=== PATIENT | female | born 1955 | race Caucasian/White ===

== ENCOUNTER → 2020-08-04 10:19 | Outpatient (CLI) | payer MEDICARE, OTHER, SELFPAY ==
--- NOTE | ~2020-08-04 | DEXA_ITS ---
Bone Density Report Name: Dianne Chacon Age: 65 Sex: Female Ethnicity: White Date of : 1955 Indication: postmenopausal; screening for osteoporosis; parental hip fracture; height loss; hysterectomy; Referring Provider: TITA GRAVES Study: Bone densitometry was performed. Exam Date: August 04, 2020 Accession number: [id number] Bone Density: Region BMD T-score Z-score Classification AP Spine (L1, L2, L3) 1.119 0.9 2.8 Normal Femoral Neck (Left) 0.731 -1.1 0.6 Osteopenia Total Hip (Left) 0.778 -1.3 0.0 Osteopenia Femoral Neck (Right) 0.731 -1.1 0.6 Osteopenia Total Hip (Right) 0.817 -1.0 0.3 Normal Total Hip Mean 0.798 -1.2 0.2 Osteopenia World Health Organization criteria for BMD impression classify patients as: Normal (T-score at or above -1.0), Osteopenia (T-score between -1.0 and -2.5), or Osteoporosis (T-score at or below -2.5). 10-year Fracture Risk(1): Major Osteoporotic Fracture 12% Hip Fracture 0.7% Reported Risk Factors: [place] (), Neck BMD=0.731, BMI=57.0, parental fracture (1) FRAX(R) Version 3.08. Fracture probability calculated for an untreated patient. Fracture probability may be lower if the patient has received treatment. Previous Exams: Region Exam Age BMD T-score BMD Change BMD Change Date g/cm2 vs Baseline vs Previous AP Spine(L1, L2, L3) 08/04/2020 65 1.119 0.9 0.176 0.098* 12/23/2015 60 1.022 0.0 0.079 0.050* 12/06/2013 58 0.972 -0.4 0.029 0.071 10/28/2011 56 0.901 -1.1 -0.042* 0.008 07/08/2009 53 0.893 -1.1 -0.050* -0.050* 03/22/2006 50 0.943 -0.7 Total Hip(Left) 08/04/2020 65 0.778 -1.3 -0.059 -0.088* 12/23/2015 60 0.865 -0.6 0.029 0.047* 12/06/2013 58 0.819 -1.0 -0.018 0.026 10/28/2011 56 0.792 -1.2 -0.044* 0.017 07/08/2009 53 0.775 -1.4 -0.061* -0.061* 03/22/2006 50 0.837 -0.9 Total Hip(Right) 08/04/2020 65 0.817 -1.0 -0.021 -0.039* 12/23/2015 60 0.856 -0.7 0.019 0.012 12/06/2013 58 0.844 -0.8 0.007 0.067 10/28/2011 56 0.778 -1.3 -0.060* -0.016 07/08/2009 53 0.794 -1.2 -0.043* -0.043* 03/22/2006 50 0.837 -0.9 *Denotes significance at 95% confidence level, LSC for AP Spine = 0.022 g/cm2, LSC for Total Hip = 0.027 g/cm2 Clinical Information Pr
--- NOTE | ~2020-08-04 | MM_ITS ---
EXAMINATION: MM screening [facility] BI w shannon HISTORY: Screening mammogram TECHNIQUE: Craniocaudal and mediolateral oblique 3-D tomosynthesis images were obtained and synthetic 2-D images were generated. CAD analysis was submitted and interpreted. COMPARISON: 03/21/2019, 01/31/2018, 01/05/2017 BREAST PARENCHYMAL COMPOSITION: The breasts are heterogeneously dense, which may obscure small masses . FINDINGS: RIGHT BREAST: There is no evidence of suspicious mass, calcification, or architectural distortion to suggest malignancy. There has been no significant interval change. LEFT BREAST: There is a possible mass in the middle third of the inner breast best appreciated 9 cm f rom the nipple on craniocaudal tomosynthesis image /. IMPRESSION: 1. Possible left breast mass. 2. Additional mammographic views and possible breast ultrasound are recommended. BI-RADS Category 0: Incomplete: Needs additional imaging evaluation. Reviewed, dictated and finalized at location A. K DRIVER TEAMSTER IMPRESSION: 1. Possible left breast mass. 2. Additional mammographic views and possible breast ultrasound are recommended . BI-RADS Category 0: Incomplete: Needs additional imaging evaluation.
== END ==
PROVIDERS: PCP Internal Medicine; Visit Provider Internal Medicine
DX: Z12.31 Encounter for screening mammogram for malignant neoplasm of breast (principal); Z78.0 Asymptomatic menopausal state; R92.8 Other abnormal and inconclusive findings on diagnostic imaging of breast; M85.89 Other specified disorders of bone density and structure, multiple sites
CPT/HCPCS: 77063; 77067; 77080

== ENCOUNTER 2020-09-16 13:26 | Emergency (ER) | payer MEDICARE, OTHER, SELFPAY ==
--- NOTE | 2020-09-16 13:27 | ED.WOUNDLAC ---
HPI - Wound/Laceration General Chief Complaint: Skin/Abscess/Foreign Body Stated Complaint: FINGER LACERATION Time Seen by Provider: 09/16/20 13:28 Source: patient and RN notes reviewed History of Present Illness HPI narrative: Patient is a 65-year-old female who presents the urgent care with complaints of a wound to the left index finger. Patient states that she was slicing sweet potatoes approximately 2 or 3 hours ago and cut the tip of her left index finger. Patient denies of any injury to the nailbed. Patient states that she has tried several times to get the bleeding to stop and it continues to saturate her gauze. No other acute complaints. Patient denies of taking any blood thinners. No acute distress noted. Patient aware of the plan of care. Some parts of this dictation were generated by voice recognition software and may contain typographical and/or grammatical inaccuracies. Related Data Allergies Allergy/AdvReac Type Severity Reaction Status Date / Time poison ash extract Allergy Unknown Rash Verified 09/16/20 13:44 thimerosal Allergy Unknown Rash Verified 09/16/20 13:44 Review of Systems Review of Systems: Narrative: CONSTITUTIONAL: Denies fever, chills, or sweats. EYES: Denies visual changes, redness, or discharge. ENT: Denies rhinorrhea, congestion, sore throat, or otalgia. CARDIOVASCULAR: Denies chest pain, palpitations, or edema. RESPIRATORY: Denies cough or dyspnea. GASTROINTESTINAL: Denies abdominal pain, nausea, vomiting, or diarrhea. GENITOURINARY: Denies dysuria or hematuria. SKIN: Reports of a laceration to the tip of the left index finger MUSCULOSKELETAL: Denies back pain, joint pain, or myalgia. NEUROLOGIC: Denies headache, numbness, or weakness. All other systems reviewed are negative, except as documented in HPI. [facility] Past Medical History Medical History (Updated 09/16/20 @ 13:55 by EUSEBIO [place]) Breast cancer screening Colon cancer screening Family History Family History Sibling Patient's brother is in good health Family history of type 2 diabetes mellitus Mother Family history of dementia, Onset Age: 90 Patient's mother is , Onset Age: 90 Father Family history of type 2 diabetes mellitus Social History Social History Smoking status: Never smoker Second hand tobacco smoke exposure: No Alcohol intake: current Drinks per week: 2 Substance use: never Substance use type: does not use Comments At the time of my signature, I reviewed and agree with the nursing past medical, surgical, social, and family history. There is no relevant family history pertinent to the patient complaint. Exam Narrative: Exam Narrative: GENERAL: This is a well-nourished, well-developed patient, in no apparent distress. HEAD: normocephalic, atraumatic. EYES: PERRL. Sclera clear/white. Vision is grossly intact. EARS: External ears normal NOSE: External nose normal with no obvious nasal discharge, nares without redness, no rhinorrhea. THROAT: Mucous membranes moist NECK: Neck supple SKIN: Approximately 1.5 cm skin avulsion to the tuft of the left index finger, ulnar aspect NEURO: awake, alert, and oriented to person, place and time. There were no obvious focal neurologic abnormalities. EXTREMITIES: No clubbing, cyanosis, or edema. Capillary refill less than 2 seconds to left upper extremity with positive strong left radial pulse. Course Vital Signs Vital signs: Vital Signs Temperature 98.6 F 09/16/20 13:35 Pulse Rate 81 09/16/20 13:35 Respiratory Rate 16 09/16/20 13:35 Blood Pressure 179/86 H 09/16/20 13:35 Pulse Oximetry 99 09/16/20 13:35 Temperature 98.6 F 09/16/20 13:35 Pulse Rate 81 09/16/20 13:35 Respiratory Rate 16 09/16/20 13:35 Blood Pressure 179/86 H 09/16/20 13:35 Pulse Oximetry 99 09/16/20 13:35 Reviewe
[2020-09-16 13:35] VITALS: BP 179/86; PULSE 81; RESP 16; TEMP 37; O2SAT 99
== END 2020-09-16 13:57 | disposition home or self-care (01) ==
PROVIDERS: Emergency Provider Nurse Practitioner Family; PCP Internal Medicine
DX: S61.201A Unspecified open wound of left index finger without damage to nail, initial encounter (principal); W45.8XXA Other foreign body or object entering through skin, initial encounter
CPT/HCPCS: 12001; 99212; G0463

== ENCOUNTER 2021-11-16 09:51 | Outpatient (CLI) | payer MEDICARE, OTHER, SELFPAY ==
--- NOTE | ~2021-11-16 | MM_ITS ---
EXAMINATION: MM screening [facility] BI w shannon HISTORY: Screening mammogram TECHNIQUE: Craniocaudal and mediolateral oblique 3-D tomosynthesis images were obtained and synthetic 2-D images were generated. CAD analysis was submitted and interpreted. COMPARISON: 08/04/2020, 03/21/2019, 01/31/2018 BREAST PARENCHYMAL COMPOSITION: The breasts are heterogeneously dense, which may obscure small masses . FINDINGS: There is no suspicious mass, calcification, or architectural distortion to suggest malignan cy in either breast. There has been no suspicious interval change. IMPRESSION: 1. No mammographic evidence of malignancy. 2. Recommend routine screening mammography in one year. BI-RADS Category 1: Negative Reviewed, dictated and finalized at location A.
== END 2021-11-16 09:52 | disposition home or self-care (01) ==
PROVIDERS: PCP Internal Medicine; Visit Provider Internal Medicine
DX: Z12.31 Encounter for screening mammogram for malignant neoplasm of breast (principal)
CPT/HCPCS: 77063; 77067

== ENCOUNTER 2022-08-02 09:41 | Outpatient (CLI) | payer MEDICARE, OTHER, SELFPAY ==
[2022-08-02 19:56] LABS: Alanine Aminotransferase 31 U/L (6-35); Albumin Level 4.8 g/dL (3.5-5.1); Alkaline Phosphatase 150 U/L (38-126); Anion Gap 7 mmol/L (8-16); Aspartate Amino Transferase 32 U/L (14-36); Bilirubin,Total 0.6 mg/dL (0.2-1.3); Blood Urea Nitrogen 26 mg/dL (7-17); Calcium 9.6 mg/dL (8.4-10.2); Carbon Dioxide 31 mmol/L (22-30); Chloride 100 mmol/L (98-107); Cholesterol 264 mg/dL (0-200); Estimated Glomerular Filt Rate 49; Glucose 108 mg/dL (65-110); HDL Direct 83 mg/dL; Potassium 4.9 mmol/L (3.4-5.0); Sodium 138 mmol/L (137-145); Triglycerides 134 mg/dL (<150)
[2022-08-02 20:08] LABS: LDL Cholesterol Direct 117 mg/dL
[2022-08-03 00:01] LABS: Total Triiodothyronine (T3) 1.17 NG/ML (0.97-1.69)
== END 2022-08-02 09:42 | disposition home or self-care (01) ==
LOC: ANHGOSHLAB 09:43
PROVIDERS: PCP Family Medicine; Visit Provider Family Medicine
DX: E78.2 Mixed hyperlipidemia (principal); Z13.220 Encounter for screening for lipoid disorders; I10 Essential (primary) hypertension; E03.9 Hypothyroidism, unspecified
CPT/HCPCS: 36415; 80053; 80061; 84439; 84443; 84480

== ENCOUNTER 2023-01-31 10:25 | Outpatient (CLI) | payer MEDICARE, OTHER, SELFPAY | END 2023-01-31 10:26 | disposition home or self-care (01) | LOC: ANHGOSHLAB 10:26 | PROVIDERS: PCP Family Medicine; Visit Provider Family Medicine | DX: Z13.29 Encounter for screening for other suspected endocrine disorder (principal); I10 Essential (primary) hypertension | CPT/HCPCS: 36415; 84443 ==

== ENCOUNTER 2023-08-01 10:30 | Outpatient (CLI) | payer MEDICARE, OTHER, SELFPAY ==
[2023-08-01 12:54] LABS: Basophils Absolute Auto 0.1 K/mm3 (0.0-0.1); Basophils Percent Auto 1.6 % (0.2-1.2); Eosinophils Absolute Auto 0.3 K/mm3 (0-0.3); Hematocrit 44.7 % (37.0-47.0); Hemoglobin 13.8 g/dL (12.0-15.0); Immature Granulocyte Absolute 0.02 K/mm3 (0.00-0.031); Immature Granulocyte Percent A 0.3 % (0-0.5); Lymphocytes Absolute Auto 2.48 K/mm3 (0.9-3.2); Lymphocytes Percent Auto 36.8 % (18.3-44.2); Mean Corpuscular HGB Conc 30.9 g/dl (32-36); Mean Corpuscular Hemoglobin 27.7 pg (26-34); Mean Corpuscular Volume 89.6 fl (80-100); Mean Platelet Volume 9.9 fl (7.4-10.4); Monocytes Absolute Auto 0.7 K/mm3 (0.1-0.6); Monocytes Percent Auto 9.7 % (2.6-8.5); Neutrophils Absolute Auto 3.2 K/mm3 (1.3-6.7); Neutrophils Percent Auto 47.6 % (45.5-73.1); Platelet Count Result 274 k/mm3 (150-375); Red Blood Count 4.99 M/mm3 (4.2-5.4); Red Cell Distribution Width 14.7 % (11.5-14.5); White Blood Count 6.7 K/mm3 (4.5-10.0)
[2023-08-01 13:18] LABS: Alanine Aminotransferase 27 U/L (6-35); Albumin Level 4.6 g/dL (3.5-5.1); Alkaline Phosphatase 135 U/L (38-126); Anion Gap 7 mmol/L (8-16); Aspartate Amino Transferase 36 U/L (14-36); Bilirubin,Total 0.7 mg/dL (0.2-1.3); Blood Urea Nitrogen 30 mg/dL (7-17); Calcium 9.9 mg/dL (8.4-10.2); Carbon Dioxide 28 mmol/L (22-30); Chloride 101 mmol/L (98-107); Cholesterol 247 mg/dL (0-200); Estimated Glomerular Filt Rate 49; Glucose 94 mg/dL (65-110); HDL Direct 84 mg/dL; Potassium 4.5 mmol/L (3.4-5.0); Sodium 136 mmol/L (137-145); Triglycerides 109 mg/dL (<150)
[2023-08-01 13:29] LABS: LDL Cholesterol Direct 115 mg/dL
[2023-08-01 15:46] LABS: Iron 98 ug/dL (37-170)
[2023-08-01 15:56] LABS: Percent Iron Saturation 33 % (20-50)
== END 2023-08-01 10:31 | disposition home or self-care (01) ==
PROVIDERS: PCP Family Medicine; Visit Provider Family Medicine
DX: R53.83 Other fatigue (principal); L60.3 Nail dystrophy; I12.9 Hypertensive chronic kidney disease with stage 1 through stage 4 chronic kidney disease, or unspecified chronic kidney disease; N18.31 Chronic kidney disease, stage 3a; Z13.220 Encounter for screening for lipoid disorders; Z13.29 Encounter for screening for other suspected endocrine disorder; Z13.228 Encounter for screening for other metabolic disorders
CPT/HCPCS: 36415; 80053; 80061; 82728; 83540; 83550; 84443; 85025

== ENCOUNTER 2024-02-06 08:51 | Outpatient (CLI) | payer MEDICARE, SELFPAY ==
[2024-02-06 13:09] LABS: Alanine Aminotransferase 23 U/L (6-35); Albumin Level 4.7 g/dL (3.5-5.1); Alkaline Phosphatase 128 U/L (38-126); Anion Gap 10 mmol/L (4-12); Aspartate Amino Transferase 37 U/L (14-36); Bilirubin,Total 0.5 mg/dL (0.2-1.3); Blood Urea Nitrogen 30 mg/dL (7-17); Calcium 9.5 mg/dL (8.4-10.2); Carbon Dioxide 27 mmol/L (22-30); Chloride 102 mmol/L (98-107); Estimated Glomerular Filt Rate 55; Glucose 96 mg/dL (65-110); Potassium 3.9 mmol/L (3.4-5.0); Sodium 139 mmol/L (137-145)
[2024-02-06 13:14] LABS: Appearance Urine Clear (Clear); Bacteria Urine None Seen /hpf; Bilirubin Urine Negative (Negative); Blood Urine Trace (Negative); Color Urine Yellow (Yellow); Glucose Urine UA Negative (Negative); Ketones Urine Negative (Negative); Leukocyte Esterase Ur Negative LEU/UL (Negative); Nitrate Urine Negative (Negative); Non Pathogenic Casts 0-2; Protein Urine Negative (Negative); Specific Grav Ur 1.012 (1.001-1.035); Squamous Epithelial Cell Urine None Seen /hpf (Few); Urobilinogen Urine 0.2 mg/dL (<2.0); WBC Urine 0-5 /hpf (0-3)
[2024-02-06 13:15] LABS: Parathyroid Intact 89.5 pg/mL (7.5-53.5)
[2024-02-06 13:17] LABS: Add Urine Microscopic? YES
[2024-02-06 14:06] LABS: Vitamin D 25 Hydroxy 20.2 ng/mL
[2024-02-06 14:45] LABS: Creatinine Urine 38.3 mg/dL
[2024-02-06 15:00] LABS: MALB Creatinine Ratio < 15.7 mg/g (0-30); Microalbumin Urine Random < 6.0 mg/L (0-16.7)
== END 2024-02-06 08:52 | disposition home or self-care (01) ==
PROVIDERS: PCP Family Medicine; Visit Provider Family Medicine
DX: E11.9 Type 2 diabetes mellitus without complications (principal); N18.31 Chronic kidney disease, stage 3a; E55.9 Vitamin D deficiency, unspecified; Z13.228 Encounter for screening for other metabolic disorders
CPT/HCPCS: 36415; 80053; 81001; 82043; 82306; 82330; 83036; 83970

== ENCOUNTER 2024-07-31 10:10 | Outpatient (CLI) | payer MEDICARE, SELFPAY ==
[2024-07-31 12:56] LABS: Basophils Absolute Auto 0.1 K/mm3 (0.0-0.1); Basophils Percent Auto 1.3 % (0.2-1.2); Eosinophils Absolute Auto 0.2 K/mm3 (0-0.3); Eosinophils Percent Auto 3.2 % (0-4.4); Hematocrit 45.5 % (37.0-47.0); Hemoglobin 14.6 g/dL (12.0-15.0); Immature Granulocyte Absolute 0.02 K/mm3 (0.00-0.031); Immature Granulocyte Percent A 0.3 % (0-0.5); Lymphocytes Absolute Auto 2.34 K/mm3 (0.9-3.2); Lymphocytes Percent Auto 34.2 % (18.3-44.2); Mean Corpuscular HGB Conc 32.1 g/dl (32-36); Mean Corpuscular Hemoglobin 28.6 pg (26-34); Mean Platelet Volume 10.2 fl (7.4-10.4); Monocytes Absolute Auto 0.5 K/mm3 (0.1-0.6); Monocytes Percent Auto 7.9 % (2.6-8.5); Neutrophils Absolute Auto 3.6 K/mm3 (1.3-6.7); Neutrophils Percent Auto 53.1 % (45.5-73.1); Platelet Count Result 291 k/mm3 (150-375); Red Blood Count 5.11 M/mm3 (4.2-5.4); Red Cell Distribution Width 14.8 % (11.5-14.5); White Blood Count 6.8 K/mm3 (4.5-10.0)
[2024-07-31 13:03] LABS: Alanine Aminotransferase 28 U/L (6-35); Albumin Level 4.8 g/dL (3.5-5.1); Alkaline Phosphatase 126 U/L (38-126); Anion Gap 4 mmol/L (4-12); Aspartate Amino Transferase 58 U/L (14-36); Bilirubin,Total 0.8 mg/dL (0.2-1.3); Blood Urea Nitrogen 28 mg/dL (7-17); Calcium 9.8 mg/dL (8.4-10.2); Carbon Dioxide 33 mmol/L (22-30); Chloride 101 mmol/L (98-107); Cholesterol 242 mg/dL (0-200); Estimated Glomerular Filt Rate > 60; Glucose 93 mg/dL (65-110); HDL Direct 88 mg/dL; Potassium 3.9 mmol/L (3.4-5.0); Sodium 138 mmol/L (137-145); Triglycerides 117 mg/dL (<150)
[2024-07-31 13:13] LABS: Free T4 Free Thyroxine 1.43 ng/dL (0.78-2.19); Vitamin D 25 Hydroxy 16.6 ng/mL
[2024-07-31 13:14] LABS: LDL Cholesterol Direct 105 mg/dL
[2024-07-31 13:16] LABS: Hemoglobin A1C 6.1 % (<5.7)
[2024-07-31 13:17] LABS: Parathyroid Intact 73.2 pg/mL (14.5-75.2)
== END 2024-07-31 10:11 | disposition home or self-care (01) ==
LOC: ANHGOSHLAB 10:12
PROVIDERS: PCP Family Medicine; Visit Provider Nurse Practitioner Family
DX: E78.5 Hyperlipidemia, unspecified (principal); E03.9 Hypothyroidism, unspecified; R73.03 Prediabetes; E55.9 Vitamin D deficiency, unspecified; I12.9 Hypertensive chronic kidney disease with stage 1 through stage 4 chronic kidney disease, or unspecified chronic kidney disease; N18.30 Chronic kidney disease, stage 3 unspecified
CPT/HCPCS: 36415; 80053; 80061; 82306; 83036; 83970; 84439; 84443; 85025

== ENCOUNTER 2025-07-09 09:41 | Outpatient (CLI) | payer MEDICARE, SELFPAY ==
--- OUTSIDE RECORDS SUMMARY | 2008-02-08 08:38 | XMS_ITS | Continuity of Care Document ---
Author Organization [facility] [place] [id number] [place] [address] Dr [address] [place] [phone] Phone Care Team Providers Care Primary Class Teacher Name Role Phone Bimalmekhi Luciusnan Unavailable Unavailable Procedures Procedure Date Special Reports Or Forms CL Replacement - Vistakon Disp W/BW Soft Tax - Medical Post-op Follow-up Visit No Charge Contact Lens Check Post-op Follow-up Visit Post-op Follow-up Visit Remove Cataract, Insert Lens Eye Exam Established Pt IOLMaster Office/outpatient Visit, Est Refraction Eye Exam Established Pt Ophthalmoscopy, Subsequent Office/outpatient Visit, Est Ophthalmoscopy, Subsequent Office/outpatient Visit, New Ophthalmoscopy, Subsequent Eye Exam Established Pt Ophthalmoscopy, Subsequent Eye Exam Established Pt Ophthalmoscopy, Subsequent Eye Exam Established Pt Ophthalmoscopy, Subsequent Eye Exam Established Pt Ophthalmoscopy, Subsequent Eye Exam Established Pt Ophthalmoscopy, Subsequent Eye Exam & Treatment Ophthalmoscopy, Subsequent Eye Exam Established Pt Office Consultation Ophthalmoscopy Ophthalmoscopy Advance Directives Directive Yes / No Effective Date File Name No Information Encounters Encounter Description Practice Location Reason(s) For Visit Diagnoses Date Provider Providers Copied on Encounter [facility], [address] [place] [address] [address], [place], [place], [id number], tel:[phone] [facility] No Information Serjio-2 0-200 8 Bing Christianson. [address] , [address], [place], [place], [facility], [place]. tel:[phone] [facility], [address] [place] [address] [address], [place], [place], [address], tel:[phone] [facility] No Information Apr-3 0-200 8 Thompson OD Connor. [address] [place] , [address], [place], [facility], [place]. tel:[phone] [facility], [address] [place] [address] [address], [place], [place], [address], tel:[phone] [facility] No Information Apr-2 1-200 8 Bing Christianson. [address] , [address], [place], [facility], [place]. tel:[phone] [facility], [address] [place] [address] [address], [place], [place], [address], [place] tel:[phone] [facility] No Information Apr-1 0-200 8 Thompson OD Connor. [address] , [address], [place], [facility], [place]. tel:[phone] [facility], [address] [place] [address] [address], [place], [place], [address], [place] tel:[phone] [facility] No Information Mar-2 7-200 8 Thompson OD Connor. [address] , [address], [place], [facility], [place]. tel:[phone] Referring Provider: Sammy Gusman, [employer] [employer] [address], [place], [address]. tel:[phone] [facility], [address], [place], [place], [address], [place] tel:[phone] [facility] No Information 2-200 8 Bing Christianson. [address] , [address], [place], [address], [place]. tel:[phone] [facility], [address], [place], [place], [address], [place] tel:[phone] [facility] No Information Oct-1 2-200 8 Bing Christianson. [facility], [address], [place], [facility], [place]. tel:[phone] Referring Provider: Isaias Mederos, [address] [place], [place], [facility]. tel:[phone] [facility], [address], [place], [place], [address], [place] tel:[phone] [facility] No Information 0 6-200 8 Bing Christianson. [facility] [address], [address], [place], [address], [place]. tel:[phone] Referring Provider: Sammy Gusman, [employer] [address], [place], [facility]. tel:[phone] Office/outpati ent Visit, Est [facility], [address], [place], [place], [address], [place] tel:[phone] [facility] No Information 0-200 7 Bing Christianson. [address], [address], [place], [address], [place]. tel:[phone] [facility], [address], [place], [place], [address], [place] tel:[phone] [facility] No Information Mar-1 3-200 7 Narayanan Isaias. [address] [place], [address], [place]. tel:[phone] Office/outpati ent Visit, [facility], [address], [place], [place], [address], [place] tel:[phone] [facility] No Information Aug-0 2-200 7 Narayanan Isaias. [address] [place], [address], [place]. tel:[phone] Office/outpati ent Visit, [facility], [address], [place], [place], [address], [place] tel:[phone] [facility] No Information Feb-2 6-200 7 Narayanan Isaias. [address] [place], [address], [place]. tel:[phone] [facility], [address], [place], [place], [address], [place] tel:[phone] [facility] No Information Feb-1 9-200 7 Narayanan Isiaas. [address] [place], [address], [place]. tel:[phone] [facility], [address], [place], [place], [address], [place] tel:[phone] [facility] No Information Feb-1 6-200 7 Narayanan Isaias. [address] [place], [address], [place]. tel:[phone] [facility], [address], [place], [place], [address], [place] tel:[phone] [facility] No Information Feb-0 2-200 7 Narayanan Isaias. [address] [place], [address], [place]. tel:[phone] [facility], [address], [place], [place], [address], [place] tel:[phone] [facility] No Information Serjio- 9-200 7 Narayanan Isaias. [address] [place], [facility], [place]. tel:[phone] [facility], [address], [place], [place], [address], [place] tel:[phone] [facility] No Information 4-200 7 Narayanan Isaias. [address] [place], [facility], [place]. tel:[phone] [facility], [address], [place], [place], [address], [place] tel:[phone] [facility] No Information December-3 1-200 7 Narayanan Isaias. [address] [place], [facility], [place]. tel:[phone] [facility], [address], [place], [place], [address], [place] tel:[phone] [facility] No Information December-2 9-200 7 Mary Pereira. [address] , [address], [place], [facility], . tel:[phone] Office Consultation [facility], [address], [place], [place], [address], [place] tel:[phone] [facility] No Information Nov-1 2-200 7 Narayanan Isaias. [address] [place], [facility], [place]. tel:[phone] Referring Provider: Sammy Gusman [address], [place], [facility]. tel:[phone] Family History Family Member Type Diagnosis Age At Onset No Information Payers Payer name Insurance type Covered democrat ID Authoriza tion(s) No Information Social History Type Description Quantity Date Captured Comments Sex Female Smoking Status No Information Chief Complaint And Reason For Visit No Information Reason For Referral Reason For Referral No Information History Of Present Illness Encounter Date Complaint History Of Prese nt Illness No Information Functional Status Date Functional Assessmen t No Information Instructions Date Instruction Additional Infor mation No Information Assessments Type Assessment Date No Information Patient Care Teams Name Effective Dates (start - stop) Status Members No Information
--- OUTSIDE RECORDS SUMMARY | 2008-02-08 08:38 | XMS_ITS | Continuity of Care Document ---
Author Organization [facility] Address [address] [place] [address] Dr Aguilar [address] [place] [phone] Phone Care Team Providers Care Special Procedures Tech Name Role Phone Bimalmekhi Luciusnan Unavailable Unavailable [...] Diagnoses Date Provider Providers Copied on Encounter [facility], [address] [place] [address] [address], [place], [place], [address], tel:[phone] [facility] No Information Serjio-2 0-200 8 Bing Christianson. [address] , [address], [place], [facility], [place]. tel:[phone] [facility], [address] [place] [address] [address], [place], [place], [address], tel:[phone] [facility] No Information Apr-3 0-200 8 Thompson OD Connor. [address] , [address], [place], [facility], [place]. tel:[phone] [facility], [address] [place] [address] [address], [place], [place], [address], tel:[phone] [facility] No Information Apr-2 1-200 8 Bing Christianson. [address] , [address], [place], [facility], [place]. tel:[phone] [facility], [address] [place] [address] [address], [place], [place], [address], [place] tel:[phone] [facility] No Information Apr-1 0-200 8 Thompson OD Connor. [address] , [address], [place], [facility], [place]. tel:[phone] [facility], [address] [place] [address] [address], [place], [place], [address], [place] tel:[phone] [facility] No Information Mar-2 7-200 8 Thompson OD Connor. [address] , [address], [place], [facility], [place]. tel:[phone] Referring Provider: Sammy Gusman, [employer] [employer] [address], [place], [address]. tel:[phone] [facility], [address], [place], [place], [address], [place] tel:[phone] [facility] No Information 2-200 8 Bing Christianson. [address] , [address], [place], [address], [place]. tel:[phone] [facility], [address], [place], [place], [address], [place] tel:[phone] [facility] No Information Oct-1 2-200 8 Bing Christianson. [facility] [address], [address], [place], [facility], [place]. tel:[phone] Referring Provider: Isaias Mederos, [address] [place], [place], [facility]. tel:[phone] [facility], [address] [place], [place], [place], [address], [place] tel:[phone] [facility] No Information 0 6-200 8 Bing Christianson. [facility] [address], [address], [place], [address], [place]. tel:[phone] Referring Provider: Sammy Gusman, [employer] [address], [place], [facility]. tel:[phone] Office/outpati ent Visit, Est [facility], [address], [place], [place], [address], [place] tel:[phone] [facility] No Information 0-200 7 Bing Christianson. [address], [address], [place], [address], [place]. tel:[phone] [facility], [address], [place], [place], [address], [place] tel:[phone] [facility] No Information Mar-1 3-200 7 Narayanan Isaias. [address] [place], [address], [place]. tel:[phone] Office/outpati ent Visit, [facility], [address], [place], [place], [address], [place] tel:[phone] [facility] No Information Aug-0 2-200 7 Narayanan Isaias. [address] [place], [address], [place]. tel:[phone] Office/outpati ent Visit, [facility], [address], [place], [place], [address], [place] tel:[phone] [facility] No Information Feb-2 6-200 7 Narayanan Isaias. [address] [place], [address], [place]. tel:[phone] [facility], [address] [place], [place], [place], [address], [place] tel:[phone] [facility] No Information Feb-1 9-200 7 Narayanan Isaias. [address] [place], [address], [place]. tel:[phone] [facility], [address], [place], [place], [address], [place] tel:[phone] [facility] No Information Feb-1 6-200 7 Narayanan Isaias. [address] [place], [address], [place]. tel:[phone] [facility], [address], [place], [place], [address], [place] tel:[phone] [facility] No Information Feb-0 2-200 7 Narayanan Isaias. [address] [place], [address], [place]. tel:[phone] [facility], [address], [place], [place], [address], [place] tel:[phone] [facility] No Information Serjio- 9-200 7 Narayanan Isaias. [address] [place], [facility], [place]. tel:[phone] [facility], [address], [place], [place], [address], [place] tel:[phone] [facility] No Information 4-200 7 Narayanan Isaias. [address] [place], [facility], [place]. tel:[phone] [facility], [address], [place], [place], [address], [place] tel:[phone] [facility] No Information December-3 1-200 7 Narayanan Isaias. [address] [place], [facility], [place]. tel:[phone] [facility], [address], [place], [place], [address], [place] tel:[phone] [facility] No Information December-2 9-200 7 Mary Pereira. [address] , [address], [place], [facility], . tel:[phone] Office Consultation [facility], [address], [place], [place], [address], [place] tel:[phone] [facility] No Information Nov-1 2-200 7 Narayanan Isaias. [address] [place], [facility], [place]. tel:[phone] Referring Provider: Sammy Gusman [address], [place], [facility]. tel:[phone] Family History Family Member Type Diagnosis Age At Onset No Information Payers Payer name Insurance type Covered alliance party ID Authoriza tion(s) No Information Social History [...]
--- OUTSIDE RECORDS SUMMARY | 2008-02-08 08:38 | XMS_ITS | Continuity of Care Document ---
Author Organization [facility] Address [id number] [place] [address] Dr Aguilar [address] [place] [phone] Phone Care Team Providers Care Dealer Account Manager Name Role Phone Bimalmekhi Luciusnan Unavailable Unavailable [...] Diagnoses Date Provider Providers Copied on Encounter [facility], [address] [place] [address] [address], [place], [place], [address], tel:[phone] SEC [facility] No Information Serjio-2 0-200 8 Bing Christianson. [address] [facility] [address] , [address], [place], [place], [facility], [place]. tel:[phone] [facility], [address] [place] [address] [address], [place], [place], [address], tel:[phone] SEC [facility] No Information Apr-3 0-200 8 Thompson OD Connor. [address] [facility] [place] , [address], [place], [facility], [place]. tel:[phone] [facility], [address] [place] [address] [address], [place], [place], [address], tel:[phone] SEC [facility] No Information Apr-2 1-200 8 Bing Christianson. [address] [facility] [address] , [address], [place], [facility], [place]. tel:[phone] [facility], [address] [place] [address] [address], [place], [place], [address], [place] tel:[phone] SEC [facility] No Information Apr-1 0-200 8 Thompson OD Connor. [address] [facility] [address] , [address], [place], [facility], [place]. tel:[phone] [facility], [address] [place] [address] [address], [place], [place], [address], [place] tel:[phone] SEC [facility] No Information Mar-2 7-200 8 Thompson OD Connor. [address] [facility] [address] , [address], [place], [facility], [place]. tel:[phone] Referring Provider: Sammy Gusman, [employer] [address], [place], [address]. tel:[phone] [facility], [address], [place], [place], [address], [place] tel:[phone] [facility] No Information 2-200 8 Bing Christianson. [address] [facility] , [address], [place], [address], [place]. tel:[phone] [facility], [address], [place], [place], [address], [place] tel:[phone] [facility] No Information Oct-1 2-200 8 Bing Christianson. [facility] [place], [address], [place], [facility], [place]. tel:[phone] Referring Provider: Isaias Mederos, [address] [place], [place], [facility]. tel:[phone] [facility], [address], [place], [place], [address], [place] tel:[phone] [facility] No Information 0 6-200 8 Bing Christianson. [facility]1 [facility] [place], [address], [place], [address], [place]. tel:[phone] Referring Provider: Sammy Gusman, [employer] [address], [place], [facility]. tel:[phone] Office/outpati ent Visit, Est [facility], [address], [place], [place], [address], [place] tel:[phone] [facility] No Information 0-200 7 Bing Chrsitianson. [address], [address], [place], [address], [place]. tel:[phone] [facility], [address], [place], [place], [address], [place] tel:[phone] [facility] No Information Mar-1 3-200 7 Narayanan Isaias. [address] [place], [address], [place]. tel:[phone] Office/outpati ent Visit, [facility], [address], [place], [place], [address], [place] tel:[phone] SEC [facility] No Information Aug-0 2-200 7 Narayanan Isaias. [address] [place], [address], [place]. tel:[phone] Office/outpati ent Visit, [facility], [address], [place], [place], [address], [place] tel:[phone] [facility] No Information Feb-2 6-200 7 Narayanan Isaias. [address] [place], [address], [place]. tel:[phone] [facility], [address], [place], [place], [address], [place] tel:[phone] [facility] No Information Feb-1 9-200 7 Narayanan Isaias. [address] [place], [address], [place]. tel:[phone] [facility], [address], [place], [place], [address], [place] tel:[phone] SEC [facility] No Information Feb-1 6-200 7 Narayanan Isaias. [address] [place], [address], [place]. tel:[phone] [facility], [address], [place], [place], [address], [place] tel:[phone] [facility] No Information Feb-0 2-200 7 Narayanan Isaias. [address] [place], [address], [place]. tel:[phone] [facility], [address], [place], [place], [address], [place] tel:[phone] [facility] No Information Serjio- 9-200 7 Narayanan Isaias. [address] [place], [facility], [place]. tel:[phone] [facility], [address], [place], [place], [address], [place] tel:[phone] [facility] No Information 4-200 7 Narayanan Isaias. [address] [place], [facility], [place]. tel:[phone] [facility], [address], [place], [place], [address], [place] tel:[phone] [facility] No Information December-3 1-200 7 Narayanan Isaias. [address] [place], [facility], [place]. tel:[phone] [facility], [address], [place], [place], [address], [place] tel:[phone] [facility] No Information December-2 9-200 7 Mary Pereira. [address] , [address], [place], [facility], . tel:[phone] Office Consultation [facility], [address], [place], [place], [address], [place] tel:[phone] [facility] No Information Nov-1 2-200 7 Narayanan Isaias. [address] [place], [facility], [place]. tel:[phone] Referring Provider: Sammy Gusman [address], [place], [facility]. tel:[phone] Family History Family Member Type Diagnosis Age At Onset No Information Payers Payer name Insurance type Covered libertarian ID Authoriza tion(s) No Information Social History [...]
--- OUTSIDE RECORDS SUMMARY | 2008-02-08 08:38 | XMS_ITS | Continuity of Care Document ---
Author Organization [employer] [facility] Address [address] [place] [address] Dr Agu[address] [place] [phone] Phone Care Team Providers Care Internal Controls Consultant Name Role Phone Bimalmekhi Luciusnan Unavailable Unavailable [...] Diagnoses Date Provider Providers Copied on Encounter [facility], [address] [place] [address] [address], [place], [place], [address], tel:[phone] SEC [facility] No Information Serjio-2 0-200 8 Bing Christianson. [address] [facility] [place] , [address], [place], [facility], [place]. tel:[phone] [facility], [address] [place] [address] [address], [place], [place], [address], tel:[phone] [facility] No Information Apr-3 0-200 8 Thompson OD Connor. [address] [facility] [place] , [address], [place], [facility], [place]. tel:[phone] [facility], [address] [place] [address] [address], [place], [place], [address], tel:[phone] [facility] No Information Apr-2 1-200 8 Bing Christianson. [address] [facility] , [address], [place], [facility], [place]. tel:[phone] [facility], [address] [place] [address] [address], [place], [place], [address], [place] tel:[phone] [facility] No Information Apr-1 0-200 8 Thompson OD Connor. [address] [facility] , [address], [place], [facility], [place]. tel:[phone] [facility], [address] [place] [address] [address], [place], [place], [address], [place] tel:[phone] [facility] No Information Mar-2 7-200 8 Thompson OD Connor. [address] [facility] , [address], [place], [facility], [place]. tel:[phone] Referring Provider: Sammy Gusman, [employer] [address], [place], [address]. tel:[phone] [facility], [address], [place], [place], [address], [place] tel:[phone] [facility] No Information 2-200 8 Bing Christianson. [address] [facility] , [address], [place], [address], [place]. tel:[phone] [facility], [address], [place], [place], [address], [place] tel:[phone] [facility] No Information Oct-1 2-200 8 Bing Christianson. [facility] [place], [address], [place], [facility], [place]. tel:[phone] Referring Provider: Isaias Mederos, [address] [place], [facility]. tel:[phone] [facility], [address], [place], [place], [address], [place] tel:[phone] [facility] No Information 0 6-200 8 Bing Christianson. [facility] [place], [address], [place], [address], [place]. tel:[phone] Referring Provider: Sammy Gusman, [employer] [address], [place], [facility]. tel:[phone] Office/outpati ent Visit, Est [facility], [address], [place], [place], [address], [place] tel:[phone] [facility] No Information 0-200 7 Bing Christianson. [address], [address], [place], [address], [place]. tel:[phone] [facility], [address], [place], [place], [address], [place] tel:[phone] [facility] No Information Mar-1 3-200 7 Narayanan Isaias. [address] [place], [address], [place]. tel:[phone] Office/outpati ent Visit, [facility], [address], [place], [place], [address], [place] tel:[phone] [facility] No Information Aug-0 2-200 7 Narayanan Isaias. [address] [place], [address], [place]. tel:[phone] Office/outpati ent Visit, [facility], [address], [place], [place], [address], [place] tel:[phone] [facility] No Information Feb-2 6-200 7 Narayanan Isaias. [address] [place], [address], [place]. tel:[phone] [facility], [address], [place], [place], [address], [place] tel:[phone] [facility] No Information Feb-1 9-200 7 Narayanan Isaias. [address] [place], [address], [place]. tel:[phone] [facility], [address], [place], [place], [address], [place] tel:[phone] [facility] No Information Feb-1 6-200 7 Narayanan Isaias. [address] [place], [address], [place]. tel:[phone] [facility], [address], [place], [place], [address], [place] tel:[phone] [facility] No Information Feb-0 2-200 7 Narayanan Isaias. [address] [place], [address], [place]. tel:[phone] [facility], [address], [place], [place], [address], [place] tel:[phone] [facility] No Information Serjio- 9-200 7 Narayanan Isaias. [address] [place], [facility], [place]. tel:[phone] [facility], [address], [place], [place], [address], [place] tel:[phone] [facility] No Information 4-200 7 Narayanan Isaias. [address] [place], [facility], [place]. tel:[phone] [facility], [address], [place], [place], [address], [place] tel:[phone] [facility] No Information December-3 1-200 7 Narayanan Isaias. [address] [place], [facility], [place]. tel:[phone] [facility], [address], [place], [place], [address], [place] tel:[phone] [facility] No Information December-2 9-200 7 Mary Pereira. [address] , [address], [place], [facility], . tel:[phone] Office Consultation [facility], [address], [place], [place], [address], [place] tel:[phone] [facility] No Information Nov-1 2-200 7 Narayanan Isaias. [address] [place], [facility], [place]. tel:[phone] Referring Provider: Sammy Gusman [address], [place], [facility]. tel:[phone] Family History Family Member Type Diagnosis Age At Onset No Information Payers Payer name Insurance type Covered green party ID Authoriza tion(s) No Information Social [...]
--- OUTSIDE RECORDS SUMMARY | 2008-02-08 08:38 | XMS_ITS | Continuity of Care Document ---
Author Organization [facility] Address [address] [place] [address] Dr [address] [place] [phone] Phone Care Team Providers Care Crop Research Scientist Name Role Phone Bimalmekhi Luciusnan Unavailable Unavailable [...] Diagnoses Date Provider Providers Copied on Encounter [facility], [address] [place] [address] [address], [place], [place], [address], tel:[phone] SEC [facility] No Information Serjio-2 0-200 8 Bing Christianson. [address] [facility] [place] , [address], [place], [facility], [place]. tel:[phone] [facility], [address] [place] [address] [address], [place], [place], [address], tel:[phone] [facility] No Information Apr-3 0-200 8 Thompson OD Connor. [address] [facility] [place] , [address], [place], [facility], [place]. tel:[phone] [facility], [address] [place] [address] [address], [place], [place], [address], tel:[phone] [facility] No Information Apr-2 1-200 8 Bing Christianson. [address] [facility] , [address], [place], [facility], [place]. tel:[phone] [facility], [address] [place] [address] [address], [place], [place], [address], [place] tel:[phone] [facility] No Information Apr-1 0-200 8 Thompson OD Connor. [address] [facility] , [address], [place], [facility], [place]. tel:[phone] [facility], [address] [place] [address] [address], [place], [place], [address], [place] tel:[phone] [facility] No Information Mar-2 7-200 8 Htompson OD Connor. [address] [facility] , [address], [place], [facility], [place]. tel:[phone] Referring Provider: Sammy Gusman, [employer] [address], [place], [address]. tel:[phone] [facility], [address] [place] [address], [place], [place], [address], [place] tel:[phone] [facility] No Information 2-200 8 Bing Christianson. [address] [facility] , [address], [place], [address], [place]. tel:[phone] [facility], [address] [place] [address], [place], [place], [address], [place] tel:[phone] [facility] No Information Oct-1 2-200 8 Bing Christianson. [facility] [place], [address], [place], [facility], [place]. tel:[phone] Referring Provider: Isaias Mederos, [address] [place], [facility]. tel:[phone] [facility], [address] [place] [address], [place], [place], [address], [place] tel:[phone] [facility] No Information 0 6-200 8 Bing Christianson. [facility] [place], [address], [place], [address], [place]. tel:[phone] Referring Provider: Sammy Gusman, [employer] [address], [place], [facility]. tel:[phone] Office/outpati ent Visit, Est [facility], [address] [place] [address] [place] [address], [place], [place], [address], [place] tel:[phone] [facility] No Information 0-200 7 Bing Christianson. [address], [address], [place], [address], [place]. tel:[phone] [facility], [address] [place] [address], [place], [place], [address], [place] tel:[phone] [facility] No Information Mar-1 3-200 7 Narayanan Isaias. [address] [place], [address], [place]. tel:[phone] Office/outpati ent Visit, [facility], [address] [place] [address] [place] [address], [place], [place], [address], [place] tel:[phone] [facility] No Information Aug-0 2-200 7 Narayanan Isaias. [address] [place], [address], [place]. tel:[phone] Office/outpati ent Visit, [facility], [address] [place] [address], [place], [place], [address], [place] tel:[phone] [facility] No Information Feb-2 6-200 7 Narayanan Isaias. [address] [place], [address], [place]. tel:[phone] [facility], [address] [place] [address], [place], [place], [address], [place] tel:[phone] [facility] No Information Feb-1 9-200 7 Narayanan Isaias. [address] [place], [address], [place]. tel:[phone] [facility], [address] [place] [address], [place], [place], [address], [place] tel:[phone] [facility] No Information Feb-1 6-200 7 Narayanan Isaias. [address] [place], [address], [place]. tel:[phone] [facility], [address] [place] [address], [place], [place], [address], [place] tel:[phone] [facility] No Information Feb-0 2-200 7 Narayanan Isaias. [address] [place], [address], [place]. tel:[phone] [facility], [address] [place] [address], [place], [place], [address], [place] tel:[phone] [facility] No Information Serjio- 9-200 7 Narayanan Isaias. [address] [place], [facility], [place]. tel:[phone] [facility], [address] [place] [address], [place], [place], [address], [place] tel:[phone] [facility] No Information 4-200 7 Narayanan Isaias. [address] [place], [facility], [place]. tel:[phone] [facility], [address] [place] [address], [place], [place], [address], [place] tel:[phone] [facility] No Information December-3 1-200 7 Narayanan Isaias. [address] [place], [facility], [place]. tel:[phone] [facility], [address] [place] [address], [place], [place], [address], [place] tel:[phone] [facility] No Information December-2 9-200 7 Mary Pereira. [address] , [address], [place], [facility], . tel:[phone] Office Consultation [facility], [address] [place] [address], [place], [place], [address], [place] tel:[phone] [facility] No Information Nov-1 2-200 7 Narayanan Isaias. [address] [place], [facility], [place]. tel:[phone] Referring Provider: Sammy Gusman [address], [place], [facility]. tel:[phone] Family History Family Member Type Diagnosis Age [...]
--- OUTSIDE RECORDS SUMMARY | 2008-02-08 08:38 | XMS_ITS | Continuity of Care Document ---
Author Organization [employer] [facility] [id number] [place] [address] Dr Aguilar [address] [place] [phone] Phone Care Team Providers Care Robotic Machine Tender Production Name Role Phone Bimalmekhi Luciusnan Unavailable Unavailable [...] Diagnoses Date Provider Providers Copied on Encounter [facility], [address] [place] [address] [address], [place], [place], [id number], tel:[phone] SEC [facility] No Information Serjio-2 0-200 8 Bing Christianson. [address] [facility] [place] , [address], [place], [place], [facility], [place]. tel:[phone] [facility], [address] [place] [address] [address], [place], [place], [id number], tel:[phone] [facility] No Information Apr-3 0-200 8 Thompson OD Connor. [address] [facility] [place] , [address], [place], [place], [facility], [place]. tel:[phone] [facility], [address] [place] [address] [address], [place], [place], [address], tel:[phone] [facility] No Information Apr-2 1-200 8 Bing Christianson. [address] [facility] , [address], [place], [place], [facility], [place]. tel:[phone] [facility], [address] [place] [address] [address], [place], [place], [address], [place] tel:[phone] SEC [facility] No Information Apr-1 0-200 8 Thompson OD Connor. [address] [facility] , [address], [place], [place], [facility], [place]. tel:[phone] [facility], [address] [place] [address] [address], [place], [place], [address], [place] tel:[phone] SEC [facility] No Information Mar-2 7-200 8 Thompson OD Connor. [address] [facility] , [address], [place], [place], [facility], [place]. tel:[phone] Referring Provider: Sammy Gusman, [employer], [place], [address]. tel:[phone] [facility], [address], [place], [place], [address], [place] tel:[phone] [facility] No Information 2-200 8 Bing Christianson. [address] [facility] , [address], [place], [address], [place]. tel:[phone] [facility], [address], [place], [place], [address], [place] tel:[phone] [facility] No Information Oct-1 2-200 8 Bing Christianson. [facility] [address], [address], [place], [facility], [place]. tel:[phone] Referring Provider: Isaias Mederos, [address] [place], [place], [facility]. tel:[phone] [facility], [address], [place], [place], [address], [place] tel:[phone] [facility] No Information 0 6-200 8 Bing Christianson. [facility] [address], [address], [place], [address], [place]. tel:[phone] Referring Provider: Sammy Gusman, [employer] [address], [place], [place], [facility]. tel:[phone] Office/outpati ent Visit, Est [facility], [address], [place], [place], [address], [place] tel:[phone] [facility] No Information 0-200 7 Bing Christianson. [address], [address], [place], [address], [place]. tel:[phone] [facility], [address], [place], [place], [address], [place] tel:[phone] SEC [facility] No Information Mar-1 3-200 7 Narayanan Isaias. [address] [place], [address], [place]. tel:[phone] Office/outpati ent Visit, [facility], [address], [place], [place], [address], [place] tel:[phone] SEC [facility] No Information Aug-0 2-200 7 Narayanan Isaias. [address] [place], [address], [place]. tel:[phone] Office/outpati ent Visit, [facility], [address], [place], [place], [address], [place] tel:[phone] SEC [facility] No Information Feb-2 6-200 7 Narayanan Isaias. [address] [place], [address], [place]. tel:[phone] [facility], [address], [place], [place], [address], [place] tel:[phone] SEC [facility] No Information Feb-1 9-200 7 Narayanan Isaias. [address] [place], [address], [place]. tel:[phone] [facility], [address], [place], [place], [address], [place] tel:[phone] SEC [facility] No Information Feb-1 6-200 7 Narayanan Isaias. [address] [place], [address], [place]. tel:[phone] [facility], [address], [place], [place], [address], [place] tel:[phone] SEC [facility] No Information Feb-0 2-200 7 Narayanan Isaias. [address] [place], [address], [place]. tel:[phone] [facility], [address], [place], [place], [address], [place] tel:[phone] SEC [facility] No Information Serjio- 9-200 7 Narayanan Isaisa. [address] [place], [facility], [place]. tel:[phone] [facility], [address], [place], [place], [address], [place] tel:[phone] SEC [facility] No Information 4-200 7 Narayanan Isaias. [address] [place], [facility], [place]. tel:[phone] [facility], [address], [place], [place], [address], [place] tel:[phone] SEC [facility] No Information December-3 1-200 7 Narayanan Isaias. [address] [place], [facility], [place]. tel:[phone] [facility], [address], [place], [place], [address], [place] tel:[phone] SEC [facility] No Information December-2 9-200 7 Mary Pereira. [address] , [address], [place], [facility], . tel:[phone] Office Consultation [facility], [address], [place], [place], [address], [place] tel:[phone] SEC [facility] No Information Nov-1 2-200 7 Narayanan Isaias. [address] [place], [facility], [place]. tel:[phone] Referring Provider: Sammy Gusman [address], [place], [place], [facility]. tel:[phone] Family History Family Member Type Diagnosis Age [...]
--- OUTSIDE RECORDS SUMMARY | 2025-07-09 12:58 | XMS_ITS | Clinical Summary ---
Author Organization [facility] Address [address] [place] [address] Care Team Providers Care Spooling Operator Name Role Phone Joselo Adkins MD Primary Care Provider [phone] Source Comments [facility],non-owned Affiliates and Associated Physician Practices is amultiple site organization consisting of ambulatory clinics and hospital sitesin [place], [place], [place] and [place]. This disclosure is being madepursuant to the Care Everywhere program and may not contain all information available regarding this patient. Last updated 18.[facility] Allergies Active Allergy Reactions Criticality Noted Date Comments Thimerosal Other 12/14/2018 Red, itching Medications * Be aware that medications may not be up to date on this document. Alwaysverify current medications with the patient. levothyroxine (SYNTHROID) 100 MCG tablet 12/10/2018 Active levothyroxine (SYNTHROID) 125 MCG tablet 08/23/2018 Active meloxicam (MOBIC) 15 MG tablet 10/01/2018 Active omeprazole (PRILOSEC) 20 MG capsule 09/16/2018 Active triamterene-hydr oCHLOROthiazide (MAXZIDE-25) 37.5-25 MG tablet 09/13/2018 Active loratadine (CLARITIN) 10 MG tablet Take 10 mg by mouth once daily Active Acetaminophen (TYLENOL) 325 MG CAPS Take by mouth as needed Active Multiple Vitamin (MULTI VITAMIN PO) Active Family History Medical History Relation Name Comments Glaucoma Neg Hx Social History Tobacco Use Types Packs/Day Years Used Date Smoking Tobacco: Former Cigarettes 0 Q uit: 03/31/2005 Smokeless Tobacco: Never Alcohol Use Standard Drinks/Week Comments Yes 0 (1 standard drink = 0.6 oz pur e alcohol) socially Comments Unknown Sex and Gender Information Value Date Recorded Sex Assigned at Not on file Legal Sex Female 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 Gender Identity Not on file Sexual Orientation Not on file Plan of Treatment Health Maintenance Due Date Last Done Comments BONE DENSITY TESTING 1955 COLOGUARD (AGES 45-75) - COL ON CA SCREENING 1955 COLON MONITORING 1955 COLONOSCOPY - COLON CA SCREENING 1955 CT COLONOGRAPHY - COLON CA SCREENING 1955 Colorectal Cancer Screening 1955 FIT - COLON CA SCREENING 1955 FLEX SIG - COLON CA SCREENING 1955 LIPID TESTING 1955 MAMMOGRAM 1955 HEPATITIS C SCREENING 07/06/1971 DTAP/TDAP/TD VACCINES (1 - Tdap) 1972 PNEUMOCOCCAL VACCINE 50+ (1 of 1 - PCV) 2003 ZOSTER VACCINE (1 of 2) 2003 DEPRESSION SCREENING 08/21/2024 COVID-19 VACCINE (1 - 2024-2 6 season) 2025 INFLUENZA VACCINE (#1) 2025 Respiratory Syncytial Virus (RSV) Vaccine Pt: or over 60 yrs (1 - 1-dose 75+ series) 2028 HEPATITIS B VACCINE Aged Out No longe r eligible based on patient's age to complete this topic HIB VACCINE Aged Out No longer eligi ble based on patient's age to complete this topic HPV VACCINE Aged Out No longer eligi ble based on patient's age to complete this topic MENINGOCOCCAL (Group B) VACC INE SHARED DECISION-MAKING Aged Out No longer eligibl e based on patient's age to complete this topic MENINGOCOCCAL GROUPS A/C/Y/W VACCINE Aged Out No longer eligible b ased on patient's age to complete this topic Insurance MEDICARE Care Teams Spooling Operator Relationship Specialty Start Date End Date Joselo Adkins MD [address] [place] [address] PCP - General 01/16/18
[2025-07-09 13:06] LABS: Hematocrit 46.6 % (37.0-47.0); Hemoglobin 15.0 g/dL (12.0-15.0); Immature Granulocyte Percent A 0.1 % (0-0.5); Lymphocytes Absolute Auto 2.43 K/mm3 (0.9-3.2); Mean Corpuscular HGB Conc 32.2 g/dl (32-36); Mean Corpuscular Hemoglobin 28.2 pg (26-34); Mean Corpuscular Volume 87.8 fl (80-100); Nucleated Red Blood Cells Absolute Auto 0.000 K/mm3 (0.0-0.012); Nucleated Red Blood Cells Perc 0.0 % (0.0-0.2); Platelet Count Result 299 k/mm3 (150-375); Red Blood Count 5.31 M/mm3 (4.2-5.4); White Blood Count 6.7 K/mm3 (4.5-10.0)
[2025-07-09 15:18] LABS: Alanine Aminotransferase 34 U/L (6-35); Albumin Level 4.9 g/dL (3.5-5.1); Alkaline Phosphatase 115 U/L (38-126); Anion Gap 11 mmol/L (4-12); Aspartate Amino Transferase 37 U/L (14-36); Bilirubin,Total 0.6 mg/dL (0.2-1.3); Blood Urea Nitrogen 27 mg/dL (7-17); Calcium 9.8 mg/dL (8.4-10.2); Carbon Dioxide 30 mmol/L (22-30); Chloride 98 mmol/L (98-107); Cholesterol 233 mg/dL (0-200); Estimated Glomerular Filt Rate 47; Glucose 90 mg/dL (65-110); HDL Direct 73 mg/dL; Potassium 4.2 mmol/L (3.4-5.0); Sodium 139 mmol/L (137-145); Total Protein 8.5 g/dL (6.3-8.2); Triglycerides 97 mg/dL (<150)
[2025-07-09 15:45] LABS: Free T4 Free Thyroxine 1.38 ng/dL (0.78-2.19)
[2025-07-09 15:47] LABS: Thyroid Stimulating Hormone 6.330 uIU/mL (0.465-4.680)
[2025-07-09 19:41] LABS: Hemoglobin A1C 6.3 % (<5.7)
== END 2025-07-09 09:42 | disposition home or self-care (01) ==
LOC: ANHGOSHLAB 09:42
PROVIDERS: PCP Nurse Practitioner Family; Visit Provider Nurse Practitioner Family
DX: E03.9 Hypothyroidism, unspecified (principal); I10 Essential (primary) hypertension; E78.5 Hyperlipidemia, unspecified; R73.03 Prediabetes; E55.9 Vitamin D deficiency, unspecified; Z11.59 Encounter for screening for other viral diseases
CPT/HCPCS: 36415; 80053; 80061; 82306; 83036; 84439; 84443; 85025; 86803